=== PATIENT | female | born 1950 | race Caucasian/White ===

== ENCOUNTER 2016-03-28 15:13 | Emergency (ER) | payer OTHER ==
--- NOTE | 2016-03-28 17:42 | ED ORDER SUMMARY ---
..... Patient: VIRIDIANA BARCLAY OrderSheet [facility] VisitID: [id number] [address] [place] [address] 65y, F Registration Date/Time: 03/28/2016 ORDER SHEET Weight: 83.4 kg (stated) Allergies: No Known Drug Allergy GENERAL ORDERS: Hip 2V Left w AP Pelvis Urgent (16:54 03/28/2016 Hermelinda ALARCON) (Ack 16:54 LMuller) (17:06 LMuller) MEDICATION ORDERS: IV FLUIDS: ORDER SHEET NOTES: [Electronically signed by Betsy Timmons R.N. (17:39 03/28/2016)] [Electronically locked/signed by Betsy Timmons R.N. (17:39 03/28/2016)]
--- NOTE | 2016-03-28 17:42 | ED ORDER SUMMARY ---
..... Patient: VIRIDIANA BARCLAY OrderSheet [facility] VisitID: [id number] [address] [place] [address] 65y, F Registration Date/Time: 03/28/2016 ORDER SHEET Weight: 83.4 kg (stated) Allergies: No Known Drug Allergy GENERAL ORDERS: Hip 2V Left w AP Pelvis Urgent (16:54 03/28/2016 Hermelinda ALARCON) (Ack 16:54 LMuller) (17:06 LMuller) MEDICATION ORDERS: IV FLUIDS: ORDER SHEET NOTES: [Electronically signed by Betsy Timmons R.N. (17:39 03/28/2016)] [Electronically locked/signed by Betsy Timmons R.N. (17:39 03/28/2016)]
--- NOTE | 2016-03-28 17:42 | ED CLINICAL REPORT ---
Clinical Report - Physicians/Mid Levels [facility] [address] [place] [address] 03/28/2016 15:18 [id number] Time Seen: 15:58. Arrived- By private vehicle. Historian- patient. HISTORY OF PRESENT ILLNESS Chief Complaint: FALL. Location of injuries- left hip and left thigh. The injury occurred about 1 week ago. Occurred at work. Fell while walking and landed on the ground; tripped. The patient complains of severe pain. No blow to the head or loss of consciousness. (the patient fell after tripping over some boxes at work. She was seen at a clinic and had x-rays of the left hip done and she says that these were normal. She has had intermittent severe "spasms" of her left thigh that she saysare only mildly improved with the use of cyclobenzaprine). REVIEW OF SYSTEMS The patient complains of pain on weight bearing. No chills, fever, sweats, calf pain or chest pain. No cough, difficulty breathing, pedal edema, palpitations or abdominal pain. No constipation, diarrhea, nausea, vomiting or urinary problems. All systems otherwise negative, except as recorded above. SOCIAL HISTORY Never smoker. No alcohol use or drug use. FAMILY HISTORY No significant family medical history. ADDITIONAL NOTES The nursing notes have been reviewed. PHYSICAL EXAM Vital Signs: 03/28/2016 15:31 BP: 163/90. HR: 87. RR: 18. O2 saturation: 100%. Temp: 98.5 F. Have been reviewed. Appearance: Alert. Eyes: Pupils equal, round and reactive to light. EOM intact. ENT: No dental injury. Pharynx normal. Neck: Painless ROM. No vertebral tenderness. CVS: Heart sounds normal. Pulses normal. Respiratory: Breath sounds normal. Abdomen: No visible injury. Soft and nontender. Bowel sounds normal. No organomegaly. No mass. Back: No tenderness. ROM normal. No vertebral point tenderness. Skin: Skin intact. Skin warm and dry. Normal skin color. Normal skin turgor. Extremities: Pelvis stable. Left hip: moderate tenderness. Limited ROM secondary to pain (diminished external rotation). (muscle spasm noted in the anterior and posterior thigh). Neuro: No motor deficit. No sensory deficit. LABS, X-RAYS, AND EKG Lt Hip X-ray: No fracture. Degenerative joint disease. The X-rays were independently viewed by me. PROGRESS AND PROCEDURES Course of Care: Patient is stable. Patient/family counseled. Old medical records ordered. Old records unavailable. Disposition: Discharged. Condition: stable. CLINICAL IMPRESSION Muscle strain of the left hip and left quadriceps and left hamstrings. INSTRUCTIONS You may walk and bear weight as tolerated. (discontinue the use of cyclobenzaprine as discussed). Warnings: GENERAL WARNINGS: Return or contact your physician immediately if your condition worsens or changes unexpectedly, if not improving as expected, or if other problems arise. Your Current Medications: CONTINUE TAKING THE FOLLOWING MEDICATIONS: Levothyroxine Sodium Oral. Prescription Medications: Valium 5 mg: take 1 orally every 8 hours as needed for muscle spasm. Dispense fifteen (15). No refill. Substitution is permissible. OTC Medications: Motrin (available over the counter): take according to label instructions. Understanding of the discharge instructions verbalized by patient. Follow-up with: Sean Rider MD, [facility], , [facility], [address] [place] [address] Follow up in five days. Call for an appointment. (Electronically signed by Jonas Amezquita MD 03/28/2016 18:15)
--- NOTE | 2016-03-28 17:42 | ED CLINICAL REPORT ---
Clinical Report - Physicians/Mid Levels [facility] [address] [place] [address] 03/28/2016 15:18 [id number] Time Seen: 15:58. Arrived- By private vehicle. Historian- patient. HISTORY OF PRESENT ILLNESS Chief Complaint: FALL. Location of injuries- left hip and left thigh. The injury occurred about 1 week ago. Occurred at work. Fell while walking and landed on the ground; tripped. The patient complains of severe pain. No blow to the head or loss of consciousness. (the patient fell after tripping over some boxes at work. She was seen at a clinic and had x-rays of the left hip done and she says that these were normal. She has had intermittent severe "spasms" of her left thigh that she saysare only mildly improved with the use of cyclobenzaprine). REVIEW OF SYSTEMS The patient complains of pain on weight bearing. No chills, fever, sweats, calf pain or chest pain. No cough, difficulty breathing, pedal edema, palpitations or abdominal pain. No constipation, diarrhea, nausea, vomiting or urinary problems. All systems otherwise negative, except as recorded above. SOCIAL HISTORY Never smoker. No alcohol use or drug use. FAMILY HISTORY No significant family medical history. ADDITIONAL NOTES The nursing notes have been reviewed. PHYSICAL EXAM Vital Signs: 03/28/2016 15:31 BP: 163/90. HR: 87. RR: 18. O2 saturation: 100%. Temp: 98.5 F. Have been reviewed. Appearance: Alert. Eyes: Pupils equal, round and reactive to light. EOM intact. ENT: No dental injury. Pharynx normal. Neck: Painless ROM. No vertebral tenderness. CVS: Heart sounds normal. Pulses normal. Respiratory: Breath sounds normal. Abdomen: No visible injury. Soft and nontender. Bowel sounds normal. No organomegaly. No mass. Back: No tenderness. ROM normal. No vertebral point tenderness. Skin: Skin intact. Skin warm and dry. Normal skin color. Normal skin turgor. Extremities: Pelvis stable. Left hip: moderate tenderness. Limited ROM secondary to pain (diminished external rotation). (muscle spasm noted in the anterior and posterior thigh). Neuro: No motor deficit. No sensory deficit. LABS, X-RAYS, AND EKG Lt Hip X-ray: No fracture. Degenerative joint disease. The X-rays were independently viewed by me. PROGRESS AND PROCEDURES Course of Care: Patient is stable. Patient/family counseled. Old medical records ordered. Old records unavailable. Disposition: Discharged. Condition: stable. CLINICAL IMPRESSION Muscle strain of the left hip and left quadriceps and left hamstrings. INSTRUCTIONS You may walk and bear weight as tolerated. (discontinue the use of cyclobenzaprine as discussed). Warnings: GENERAL WARNINGS: Return or contact your physician immediately if your condition worsens or changes unexpectedly, if not improving as expected, or if other problems arise. Your Current Medications: CONTINUE TAKING THE FOLLOWING MEDICATIONS: Levothyroxine Sodium Oral. Prescription Medications: Valium 5 mg: take 1 orally every 8 hours as needed for muscle spasm. Dispense fifteen (15). No refill. Substitution is permissible. OTC Medications: Motrin (available over the counter): take according to label instructions. Understanding of the discharge instructions verbalized by patient. Follow-up with: Sean Rider MD, [facility], , [facility], [address] [place] [address] Follow up in five days. Call for an appointment. (Electronically signed by Jonas Amezquita MD 03/28/2016 18:15)
--- NOTE | 2016-03-28 17:42 | ED NURSING NOTES ---
Clinical Report - Nurses [facility] [address] [place] [address] 03/28/2016 15:18 [id number] Triage time 15:Mar 28 2016. Acuity: LEVEL 4. Chief Complaint: FALL. 15:31 03/28/16. SEPSIS SCREEN: Sepsis Screen: negative. Negative (no infection suspected/documented). JULEE COMA SCORE: Julee Coma Scale: 15- eyes open spontaneously (4); best verbal response- oriented x 4 (5); best motor response- obeys commands (6). --15:35 Betsy Timmons R.N. 15:31 03/28/16. BP: 163/90. HR: 87. RR: 18. O2 saturation: 100%. Temp: 98.5 F. Pain level now 8/10. --15:35 Betsy Timmons R.N. 15:35 03/28/16. --15:35 Betsy Timmons R.N. Weight: 83.4 kg stated. Height/Length: 67 inches Per Patient. BMI: 28.8. --15:31 Betsy Timmons R.N. Medications Levothyroxine Sodium Oral. --15:33 Betsy Timmons R.N. Allergies No Known Drug Allergy. --15:33 Betsy Timmons R.N. Medication/allergy information source: the patient. --15:35 Betsy Timmons R.N. History Arrived by private vehicle. Historian: patient. Accompanied by family. Location of injuries: left hip and left thigh. This occurred (7 days ago). No loss of consciousness. No headache, neck pain, back pain, numbness or weakness. 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 Trauma activation: Pre-hospital notification of patient arrival was not received. PAST MEDICAL HX: Immunizations: seasonal influenza. SOCIAL HX: Never smoker. No alcohol use or drug use. No infectious disease exposure. ABUSE ASSESSMENT: No report of abuse. SELF HARM ASSESSMENT: A self harm assessment was performed. The patient answered "no" to the question "Have you recently felt down, depressed, or hopeless?", "Have you noticed less interest or pleasure in doing things?", "Do you have thoughts of harming or killing yourself?", "Are you here because you tried to hurt yourself?", "Have you ever tried to hurt yourself before today?", "Have you recently had thoughts about harming or killing others?" and "Do you have any dangerous items in your possession?". NUTRITIONAL RISK ASSESSMENT: The nutritional risk assessment revealed no deficiencies. FUNCTIONAL ASSESSMENT: Functional assessment: no impairments noted. LEARNING NEEDS ASSESSMENT: The learning needs assessment revealed no barriers. SKIN INTEGRITY ASSESSMENT: Skin integrity risk assessment completed. No skin integrity risk identified. --15:35 Betsy Timmons R.N. ( PATIENT STATES FELL LAST WEEK AT WORK, INITIALLY EVALUATED AT [place], [place] WITH FLEXERIL. PAIN HAS BEEN GETTING WORSE SINCE THEN.). --15:35 Betsy Timmons R.N. PROBLEMS: Hypothyroidism. --15:33 Betsy Timmons R.N. ADDITIONAL SURGERIES: Hysterectomy. --15:33 Betsy Timmons R.N. Interventions ID band on patient. --15:35 Betsy Timmons R.N. PHYSICAL ASSESSMENT 15:38 03/28/16. Ambulatory to room. GENERAL / NEURO / PSYCH: Alert. Oriented X 4. Appears in no acute distress. Appears in pain. HEENT: Pupils equal, round and reactive to light. Head non-tender. RESPIRATORY: Breath sounds within normal limits. CVS: Pulses within normal limits. GI / : Abdomen soft and nontender. No pelvis related complaint. EXTREMITIES: Extremities exhibit normal ROM. Limping gait. Neuro-vascular status intact to the extremity. Left thigh: tenderness. No injury to the right hip or left hip. SKIN: Skin intact. Skin is warm and dry. --15:38 Betsy Timmons R.N. NURSING PROGRESS NOTES 15:39 03/28/16. The initial plan of care for this patient includes an assessment with efforts to address the presence of pain; impairment of the musculoskeletal system. This plan of care was discussed with the patient. Patient gowned. Reassurance given. Two patient identifiers checked. Call light placed in reach. Side rails up. Bed placed in lowest position. Brakes of bed on. Patient ready for evaluation. --15:39 Betsy Timmons R.N. 16:59 03/28/16. Patient transported to radiology by stretcher. --16:59 Betsy Timmons R.N. 17:06 03/28/16. Patient returned from radiology by stretcher. --17:06 Betsy Timmons R.N. DISPOSITION / DISCHARGE 17:39 03/28/16. Condition at departure: improved. The goals identified in the patient's plan of care were met. No learning barriers present. Reviewed medication(s) side effects, precautions, dosing and course information. Prescription(s) given to the patient. Reviewed referral to a primary care physician for followup. Summary of care provided to patient. Patient verbalized understanding. Written instructions provided in [place]er. The patient was discharged home and accompanied by family. She left the Emergency Department ambulatory and via private vehicle. Family member driving. --17:39 Betsy Timmons R.N. 17:39 03/28/16. BP: 163/94. HR: 73. RR: 18. O2 saturation: 95%. Temp: 98.1 F. Pain level now 4/10. --17:39 Betsy Timmons R.N. Departure time: 17:39 Mar 28 2016. --17:39 Betsy Timmons R.N. Locked/Released at 03/28/2016 17:39 by Betsy Timmons R.N.
--- NOTE | 2016-03-28 17:42 | ED NURSING NOTES ---
Clinical Report - Nurses [facility] [address] [place] [address] 03/28/2016 15:18 [id number] Triage time 15:Mar 28 2016. Acuity: LEVEL 4. Chief Complaint: FALL. 15:31 03/28/16. SEPSIS SCREEN: Sepsis Screen: negative. Negative (no infection suspected/documented). JULEE COMA SCORE: Julee Coma Scale: 15- eyes open spontaneously (4); best verbal response- oriented x 4 (5); best motor response- obeys commands (6). --15:35 Betsy Timmons R.N. 15:31 03/28/16. BP: 163/90. HR: 87. RR: 18. O2 saturation: 100%. Temp: 98.5 F. Pain level now 8/10. --15:35 Betsy Timmons R.N. 15:35 03/28/16. --15:35 Betsy Timmons R.N. Weight: 83.4 kg stated. Height/Length: 67 inches Per Patient. BMI: 28.8. --15:31 Betsy Timmons R.N. Medications Levothyroxine Sodium Oral. --15:33 Betsy Timmons R.N. Allergies No Known Drug Allergy. --15:33 Betsy Timmons R.N. Medication/allergy information source: the patient. --15:35 Betsy Timmons R.N. History Arrived by private vehicle. Historian: patient. Accompanied by family. Location of injuries: left hip and left thigh. This occurred (7 days ago). No loss of consciousness. No headache, neck pain, back pain, numbness or weakness. 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 Trauma activation: Pre-hospital notification of patient arrival was not received. PAST MEDICAL HX: Immunizations: seasonal influenza. SOCIAL HX: Never smoker. No alcohol use or drug use. No infectious disease exposure. ABUSE ASSESSMENT: No report of abuse. SELF HARM ASSESSMENT: A self harm assessment was performed. The patient answered "no" to the question "Have you recently felt down, depressed, or hopeless?", "Have you noticed less interest or pleasure in doing things?", "Do you have thoughts of harming or killing yourself?", "Are you here because you tried to hurt yourself?", "Have you ever tried to hurt yourself before today?", "Have you recently had thoughts about harming or killing others?" and "Do you have any dangerous items in your possession?". NUTRITIONAL RISK ASSESSMENT: The nutritional risk assessment revealed no deficiencies. FUNCTIONAL ASSESSMENT: Functional assessment: no impairments noted. LEARNING NEEDS ASSESSMENT: The learning needs assessment revealed no barriers. SKIN INTEGRITY ASSESSMENT: Skin integrity risk assessment completed. No skin integrity risk identified. --15:35 Betsy Timmons R.N. ( PATIENT STATES FELL LAST WEEK AT WORK, INITIALLY EVALUATED AT [place], [place] WITH FLEXERIL. PAIN HAS BEEN GETTING WORSE SINCE THEN.). --15:35 Betsy Timmons R.N. PROBLEMS: Hypothyroidism. --15:33 Betsy Timmons R.N. ADDITIONAL SURGERIES: Hysterectomy. --15:33 Betsy Timmons R.N. Interventions ID band on patient. --15:35 Betsy Timmons R.N. PHYSICAL ASSESSMENT 15:38 03/28/16. Ambulatory to room. GENERAL / NEURO / PSYCH: Alert. Oriented X 4. Appears in no acute distress. Appears in pain. HEENT: Pupils equal, round and reactive to light. Head non-tender. RESPIRATORY: Breath sounds within normal limits. CVS: Pulses within normal limits. GI / : Abdomen soft and nontender. No pelvis related complaint. EXTREMITIES: Extremities exhibit normal ROM. Limping gait. Neuro-vascular status intact to the extremity. Left thigh: tenderness. No injury to the right hip or left hip. SKIN: Skin intact. Skin is warm and dry. --15:38 Betsy Timmons R.N. NURSING PROGRESS NOTES 15:39 03/28/16. The initial plan of care for this patient includes an assessment with efforts to address the presence of pain; impairment of the musculoskeletal system. This plan of care was discussed with the patient. Patient gowned. Reassurance given. Two patient identifiers checked. Call light placed in reach. Side rails up. Bed placed in lowest position. Brakes of bed on. Patient ready for evaluation. --15:39 Betsy Timmons R.N. 16:59 03/28/16. Patient transported to radiology by stretcher. --16:59 Betsy Timmons R.N. 17:06 03/28/16. Patient returned from radiology by stretcher. --17:06 Betsy Timmons R.N. DISPOSITION / DISCHARGE 17:39 03/28/16. Condition at departure: improved. The goals identified in the patient's plan of care were met. No learning barriers present. Reviewed medication(s) side effects, precautions, dosing and course information. Prescription(s) given to the patient. Reviewed referral to a primary care physician for followup. Summary of care provided to patient. Patient verbalized understanding. Written instructions provided in [place]an. The patient was discharged home and accompanied by family. She left the Emergency Department ambulatory and via private vehicle. Family member driving. --17:39 Betsy Timmons R.N. 17:39 03/28/16. BP: 163/94. HR: 73. RR: 18. O2 saturation: 95%. Temp: 98.1 F. Pain level now 4/10. --17:39 Betsy Timmons R.N. Departure time: 17:39 Mar 28 2016. --17:39 Betsy Timmons R.N. Locked/Released at 03/28/2016 17:39 by Betsy Timmons R.N.
--- NOTE | 2016-03-28 18:16 | ED DISCHARGE INSTRUCTIONS ---
Patient: VIRIDIANA BARCLAY General Instructions [facility] VisitID: [id number] [address] [place], [place] [id number] 65y, F Registration Date/Time: 03/28/2016 Muscle strain of the left hip and left quadriceps and left hamstrings. INSTRUCTIONS You may walk and bear weight as tolerated. (discontinue the use of cyclobenzaprine as discussed). Warnings: GENERAL WARNINGS: Return or contact your physician immediately if your condition worsens or changes unexpectedly, if not improving as expected, or if other problems arise. Your Current Medications: CONTINUE TAKING THE FOLLOWING MEDICATIONS: Levothyroxine Sodium Oral. Prescription Medications: Valium 5 mg: take 1 orally every 8 hours as needed for muscle spasm. Dispense fifteen (15). No refill. Substitution is permissible. OTC Medications: Motrin (available over the counter): take according to label instructions. Understanding of the discharge instructions verbalized by patient. Follow-up with: Sean Rider MD, [facility], , [facility], [address] [place] [address] Follow up in five days. Call for an appointment. ADDITIONAL INFORMATION Hip Strain You have a strain of the muscles around the hip joint. A muscle strain is a stretching or tearing of muscle fibers. This causes pain, especially with motion of that muscle. There may also be some swelling and bruising. Home Care: Stay off the injured leg as much as possible until you can walk on it without pain. If you have a lot of pain with walking, crutches or a walker may be prescribed. (These can be rented or purchased at many pharmacies and surgical or orthopedic supply stores). Follow your doctor's advice regarding when to begin bearing weight on that leg. Apply an ice pack (ice cubes in a plastic bag, wrapped in a towel) over the injured area for 20 minutes every 1-2 hours the first day. Continue with ice packs 3-4 times a day for the next two days, then as needed for the relief of pain and swelling. Unless otherwise instructed, on the fourth day you may begin hot soaks or hot packs (small towel soaked in hot water) 3-4 times a day while you gently exercise the involved area. You may use acetaminophen (Tylenol) or ibuprofen (Motrin, Advil) to control pain, unless another pain medicine was prescribed. [NOTE: If you have chronic liver or kidney disease or ever had a stomach ulcer or GI bleeding, talk with your doctor before using these medicines.] If you play sports, you may resume these activities when you are able to hop and run on the injured leg without pain. Follow Up with your doctor, or as advised by our staff, if your symptoms do not begin to improve after one week. Further tests may be needed. [NOTE: If X-rays were taken, they will be reviewed by a radiologist. You will be notified of any new findings that may affect your care.] Get Prompt Medical Attention if any of the following occur: Increased swelling or increased bruising Pain becomes worse Decreased ability to bear weight on the injured side Diazepam Oral tablet What is this medicine? DIAZEPAM (dye AZ e andre) is a benzodiazepine. It is used to treat anxiety and nervousness. It also can help treat alcohol withdrawal, relax muscles, and treat certain types of seizures. How should I use this medicine? Take this medicine by mouth with a glass of water. Follow the directions on the prescription label. If this medicine upsets your stomach, take it with food or milk. Take your doses at regular intervals. Do not take your medicine more often than directed. If you have been taking this medicine regularly for some time, do not suddenly stop taking it. You must gradually reduce the dose or you may get severe side effects. Ask your doctor or health childcare worker for advice. Even after you stop taking this medicine it can still affect your body for several days. Talk to your ict help desk technician regarding the use of this medicine in children. Special care may be needed. What side effects may I notice from receiving this medicine? Side effects that you should report to your doctor or health childcare worker as soon as possible: allergic reactions like skin rash, itching or hives, swelling of the face, lips, or tongue angry, confused, depressed, other mood changes breathing problems feeling faint or lightheaded, falls muscle cramps problems with balance, talking, walking restlessness tremors trouble passing urine or change in the amount of urine unusually weak or tired Side effects that usually do not require medical attention (report to your doctor or health childcare worker if they continue or are bothersome): difficulty sleeping, nightmares dizziness, drowsiness, clumsiness, or unsteadiness, a hangover effect headache nausea, vomiting What may interact with this medicine? cimetidine grapefruit juice herbal or dietary supplements like kava kava, melatonin, Ksenia's Wort, or valerian medicines for anxiety or sleeping problems, like alprazolam, lorazepam, or triazolam medicines for depression, mental problems or psychiatric disturbances medicines for HIV infection or AIDS prescription pain medicines rifampin, rifapentine, or rifabutin some medicines for seizures like carbamazepine, phenobarbital, phenytoin, or primidone What if I miss a dose? If you miss a dose, take it as soon as you can. If it is almost time for your next dose, take only that dose. Do not take double or extra doses. Where should I keep my medicine? Keep out of the reach of children. This medicine can be abused. Keep your medicine in a safe place to protect it from theft. Do not share this medicine with anyone. Selling or giving away this medicine is dangerous and against the law. Store at room temperature between 15 and 30 degrees C (59 and 86 degrees F). Protect from light. Keep container tightly closed. Throw away any unused medicine after the expiration date. What should I tell my health care provider before I take this medicine? They need to know if you have any of these conditions an alcohol or drug abuse problem bipolar disorder, depression, psychosis or other mental health condition glaucoma kidney or liver disease lung or breathing disease myasthenia gravis Parkinson's disease seizures or a history of seizures suicidal thoughts an unusual or allergic reaction to diazepam, other benzodiazepines, foods, dyes, or preservatives or trying to get breast-feeding What should I watch for while using this medicine? Visit your doctor or health childcare worker for regular checks on your progress. Your body can become dependent on this medicine. Ask your doctor or health childcare worker if you still need to take it. You may get drowsy or dizzy. Do not drive, use machinery, or do anything that needs mental alertness until you know how this medicine affects you. To reduce the risk of dizzy and fainting spells, do not stand or sit up quickly, especially if you are an older patient. Alcohol may increase dizziness and drowsiness. Avoid alcoholic drinks. Do not treat yourself for coughs, colds or allergies without asking your doctor or health childcare worker for advice. Some ingredients can increase possible side effects. Ibuprofen Oral tablet What is this medicine? IBUPROFEN (eye BYOO proe fen) is a non-steroidal anti-inflammatory drug (NSAID). It is used for dental pain, fever, headaches or migraines, osteoarthritis, rheumatoid arthritis, or painful monthly periods. It can also relieve minor aches and pains caused by a cold, flu, or sore throat. How should I use this medicine? Take this medicine by mouth with a glass of water. Follow the directions on the prescription label. Take this medicine with food if your stomach gets upset. Try to not lie down for at least 10 minutes after you take the medicine. Take your medicine at regular intervals. Do not take your medicine more often than directed. A special MedGuide will be given to you by the pharmacist with each prescription and refill. Be sure to read this information carefully each time. Talk to your ict help desk technician regarding the use of this medicine in children. Special care may be needed. What side effects may I notice from receiving this medicine? Side effects that you should report to your doctor or health childcare worker as soon as possible: allergic reactions like skin rash, itching or hives, swelling of the face, lips, or tongue black or bloody stools, blood in the urine or in vomit breathing problems changes in vision chest pain general ill feeling or flu-like symptoms nausea or vomiting redness, blistering, peeling or loosening of the skin, including inside the mouth slurred speech or weakness on one side of the body stomach pain unexplained weight gain or swelling unusually weak or tired yellowing of eyes or skin Side effects that usually do not require medical attention (report to your doctor or health childcare worker if they continue or are bothersome): constipation or diarrhea dizziness gas or heartburn stomach upset What may interact with this medicine? Do not take this medicine with any of the following medications: cidofovir ketorolac methotrexate pemetrexed This medicine may also interact with the following medications: alcohol aspirin diuretics lithium other drugs for inflammation like prednisone warfarin What if I miss a dose? If you miss a dose, take it as soon as you can. If it is almost time for your next dose, take only that dose. Do not take double or extra doses. Where should I keep my medicine? Keep out of the reach of children. Store at room temperature between 15 and 30 degrees C (59 and 86 degrees F). Keep container tightly closed. Throw away any unused medicine after the expiration date. What should I tell my health care provider before I take this medicine? They need to know if you have any of these conditions: asthma cigarette smoker drink more than 3 alcohol containing drinks a day heart disease or circulation problems such as heart failure or leg edema (fluid retention) high blood pressure kidney disease liver disease stomach bleeding or ulcers an unusual or allergic reaction to ibuprofen, aspirin, other NSAIDS, other medicines, foods, dyes, or preservatives or trying to get breast-feeding What should I watch for while using this medicine? Tell your doctor or healthcare professional if your symptoms do not start to get better or if they get worse. This medicine does not prevent heart attack or stroke. In fact, this medicine may increase the chance of a heart attack or stroke. The chance may increase with longer use of this medicine and in people who have heart disease. If you take aspirin to prevent heart attack or stroke, talk with your doctor or health childcare worker. Do not take other medicines that contain aspirin, ibuprofen, or naproxen with this medicine. Side effects such as stomach upset, nausea, or ulcers may be more likely to occur. Many medicines available without a prescription should not be taken with this medicine. This medicine can cause ulcers and bleeding in the stomach and intestines at any time during treatment. Ulcers and bleeding can happen without warning symptoms and can cause . To reduce your risk, do not smoke cigarettes or drink alcohol while you are taking this medicine. You may get drowsy or dizzy. Do not drive, use machinery, or do anything that needs mental alertness until you know how this medicine affects you. Do not stand or sit up quickly, especially if you are an older patient. This reduces the risk of dizzy or fainting spells. This medicine can cause you to bleed more easily. Try to avoid damage to your teeth and gums when you brush or floss your teeth. You have been given the following additional information: Hip Strain Diazepam Oral tablet Ibuprofen Oral tablet You may walk and bear weight as tolerated. (Electronically signed by Jonas Amezquita MD 03/28/2016 18:15)
--- NOTE | 2016-03-28 18:16 | ED DISCHARGE INSTRUCTIONS ---
Patient: VIRIDIANA BARCLAY General Instructions [facility] VisitID: [id number] [address] [place], [place] [id number] 65y, F Registration Date/Time: 03/28/2016 Muscle strain of the left hip and left quadriceps and left hamstrings. INSTRUCTIONS You may walk and bear weight as tolerated. (discontinue the use of cyclobenzaprine as discussed). Warnings: GENERAL WARNINGS: Return or contact your physician immediately if your condition worsens or changes unexpectedly, if not improving as expected, or if other problems arise. Your Current Medications: CONTINUE TAKING THE FOLLOWING MEDICATIONS: Levothyroxine Sodium Oral. Prescription Medications: Valium 5 mg: take 1 orally every 8 hours as needed for muscle spasm. Dispense fifteen (15). No refill. Substitution is permissible. OTC Medications: Motrin (available over the counter): take according to label instructions. Understanding of the discharge instructions verbalized by patient. Follow-up with: Sean Rider MD, [facility], , [facility], [address] [place] [address] Follow up in five days. Call for an appointment. ADDITIONAL INFORMATION Hip Strain You have a strain of the muscles around the hip joint. A muscle strain is a stretching or tearing of muscle fibers. This causes pain, especially with motion of that muscle. There may also be some swelling and bruising. Home Care: Stay off the injured leg as much as possible until you can walk on it without pain. If you have a lot of pain with walking, crutches or a walker may be prescribed. (These can be rented or purchased at many pharmacies and surgical or orthopedic supply stores). Follow your doctor's advice regarding when to begin bearing weight on that leg. Apply an ice pack (ice cubes in a plastic bag, wrapped in a towel) over the injured area for 20 minutes every 1-2 hours the first day. Continue with ice packs 3-4 times a day for the next two days, then as needed for the relief of pain and swelling. Unless otherwise instructed, on the fourth day you may begin hot soaks or hot packs (small towel soaked in hot water) 3-4 times a day while you gently exercise the involved area. You may use acetaminophen (Tylenol) or ibuprofen (Motrin, Advil) to control pain, unless another pain medicine was prescribed. [NOTE: If you have chronic liver or kidney disease or ever had a stomach ulcer or GI bleeding, talk with your doctor before using these medicines.] If you play sports, you may resume these activities when you are able to hop and run on the injured leg without pain. Follow Up with your doctor, or as advised by our staff, if your symptoms do not begin to improve after one week. Further tests may be needed. [NOTE: If X-rays were taken, they will be reviewed by a radiologist. You will be notified of any new findings that may affect your care.] Get Prompt Medical Attention if any of the following occur: Increased swelling or increased bruising Pain becomes worse Decreased ability to bear weight on the injured side Diazepam Oral tablet What is this medicine? DIAZEPAM (dye AZ e andre) is a benzodiazepine. It is used to treat anxiety and nervousness. It also can help treat alcohol withdrawal, relax muscles, and treat certain types of seizures. How should I use this medicine? Take this medicine by mouth with a glass of water. Follow the directions on the prescription label. If this medicine upsets your stomach, take it with food or milk. Take your doses at regular intervals. Do not take your medicine more often than directed. If you have been taking this medicine regularly for some time, do not suddenly stop taking it. You must gradually reduce the dose or you may get severe side effects. Ask your doctor or health rn care manager for advice. Even after you stop taking this medicine it can still affect your body for several days. Talk to your reporter regarding the use of this medicine in children. Special care may be needed. What side effects may I notice from receiving this medicine? Side effects that you should report to your doctor or health rn care manager as soon as possible: allergic reactions like skin rash, itching or hives, swelling of the face, lips, or tongue angry, confused, depressed, other mood changes breathing problems feeling faint or lightheaded, falls muscle cramps problems with balance, talking, walking restlessness tremors trouble passing urine or change in the amount of urine unusually weak or tired Side effects that usually do not require medical attention (report to your doctor or health rn care manager if they continue or are bothersome): difficulty sleeping, nightmares dizziness, drowsiness, clumsiness, or unsteadiness, a hangover effect headache nausea, vomiting What may interact with this medicine? cimetidine grapefruit juice herbal or dietary supplements like kava kava, melatonin, Ksenia's Wort, or valerian medicines for anxiety or sleeping problems, like alprazolam, lorazepam, or triazolam medicines for depression, mental problems or psychiatric disturbances medicines for HIV infection or AIDS prescription pain medicines rifampin, rifapentine, or rifabutin some medicines for seizures like carbamazepine, phenobarbital, phenytoin, or primidone What if I miss a dose? If you miss a dose, take it as soon as you can. If it is almost time for your next dose, take only that dose. Do not take double or extra doses. Where should I keep my medicine? Keep out of the reach of children. This medicine can be abused. Keep your medicine in a safe place to protect it from theft. Do not share this medicine with anyone. Selling or giving away this medicine is dangerous and against the law. Store at room temperature between 15 and 30 degrees C (59 and 86 degrees F). Protect from light. Keep container tightly closed. Throw away any unused medicine after the expiration date. What should I tell my health care provider before I take this medicine? They need to know if you have any of these conditions an alcohol or drug abuse problem bipolar disorder, depression, psychosis or other mental health condition glaucoma kidney or liver disease lung or breathing disease myasthenia gravis Parkinson's disease seizures or a history of seizures suicidal thoughts an unusual or allergic reaction to diazepam, other benzodiazepines, foods, dyes, or preservatives or trying to get breast-feeding What should I watch for while using this medicine? Visit your doctor or health rn care manager for regular checks on your progress. Your body can become dependent on this medicine. Ask your doctor or health rn care manager if you still need to take it. You may get drowsy or dizzy. Do not drive, use machinery, or do anything that needs mental alertness until you know how this medicine affects you. To reduce the risk of dizzy and fainting spells, do not stand or sit up quickly, especially if you are an older patient. Alcohol may increase dizziness and drowsiness. Avoid alcoholic drinks. Do not treat yourself for coughs, colds or allergies without asking your doctor or health rn care manager for advice. Some ingredients can increase possible side effects. Ibuprofen Oral tablet What is this medicine? IBUPROFEN (eye BYOO proe fen) is a non-steroidal anti-inflammatory drug (NSAID). It is used for dental pain, fever, headaches or migraines, osteoarthritis, rheumatoid arthritis, or painful monthly periods. It can also relieve minor aches and pains caused by a cold, flu, or sore throat. How should I use this medicine? Take this medicine by mouth with a glass of water. Follow the directions on the prescription label. Take this medicine with food if your stomach gets upset. Try to not lie down for at least 10 minutes after you take the medicine. Take your medicine at regular intervals. Do not take your medicine more often than directed. A special MedGuide will be given to you by the pharmacist with each prescription and refill. Be sure to read this information carefully each time. Talk to your reporter regarding the use of this medicine in children. Special care may be needed. What side effects may I notice from receiving this medicine? Side effects that you should report to your doctor or health rn care manager as soon as possible: allergic reactions like skin rash, itching or hives, swelling of the face, lips, or tongue black or bloody stools, blood in the urine or in vomit breathing problems changes in vision chest pain general ill feeling or flu-like symptoms nausea or vomiting redness, blistering, peeling or loosening of the skin, including inside the mouth slurred speech or weakness on one side of the body stomach pain unexplained weight gain or swelling unusually weak or tired yellowing of eyes or skin Side effects that usually do not require medical attention (report to your doctor or health rn care manager if they continue or are bothersome): constipation or diarrhea dizziness gas or heartburn stomach upset What may interact with this medicine? Do not take this medicine with any of the following medications: cidofovir ketorolac methotrexate pemetrexed This medicine may also interact with the following medications: alcohol aspirin diuretics lithium other drugs for inflammation like prednisone warfarin What if I miss a dose? If you miss a dose, take it as soon as you can. If it is almost time for your next dose, take only that dose. Do not take double or extra doses. Where should I keep my medicine? Keep out of the reach of children. Store at room temperature between 15 and 30 degrees C (59 and 86 degrees F). Keep container tightly closed. Throw away any unused medicine after the expiration date. What should I tell my health care provider before I take this medicine? They need to know if you have any of these conditions: asthma cigarette smoker drink more than 3 alcohol containing drinks a day heart disease or circulation problems such as heart failure or leg edema (fluid retention) high blood pressure kidney disease liver disease stomach bleeding or ulcers an unusual or allergic reaction to ibuprofen, aspirin, other NSAIDS, other medicines, foods, dyes, or preservatives or trying to get breast-feeding What should I watch for while using this medicine? Tell your doctor or healthcare professional if your symptoms do not start to get better or if they get worse. This medicine does not prevent heart attack or stroke. In fact, this medicine may increase the chance of a heart attack or stroke. The chance may increase with longer use of this medicine and in people who have heart disease. If you take aspirin to prevent heart attack or stroke, talk with your doctor or health rn care manager. Do not take other medicines that contain aspirin, ibuprofen, or naproxen with this medicine. Side effects such as stomach upset, nausea, or ulcers may be more likely to occur. Many medicines available without a prescription should not be taken with this medicine. This medicine can cause ulcers and bleeding in the stomach and intestines at any time during treatment. Ulcers and bleeding can happen without warning symptoms and can cause . To reduce your risk, do not smoke cigarettes or drink alcohol while you are taking this medicine. You may get drowsy or dizzy. Do not drive, use machinery, or do anything that needs mental alertness until you know how this medicine affects you. Do not stand or sit up quickly, especially if you are an older patient. This reduces the risk of dizzy or fainting spells. This medicine can cause you to bleed more easily. Try to avoid damage to your teeth and gums when you brush or floss your teeth. You have been given the following additional information: Hip Strain Diazepam Oral tablet Ibuprofen Oral tablet You may walk and bear weight as tolerated. (Electronically signed by Jonas Amezquita MD 03/28/2016 18:15)
--- NOTE | 2016-03-28 18:16 | ED MED RECONCILIATION SUMMARY ---
Patient: VIRIDIANA BARCLAY Medication Reconciliation Report [facility] VisitID: [id number] [address] [place] [address] 65y, F Registration Date/Time: 03/28/2016 Weight: 83.4 kg Height/Length: 67 in. BMI: 28.8 ALLERGIES: No Known Drug Allergy The patient's Home Medications are listed below: CONTINUE TAKING THE FOLLOWING MEDICATIONS: Levothyroxine Sodium Oral The source(s) of the original Home Medication information: patient The following Medications were given to the patient in the Emergency Department: None. The following Medications were prescribed to the patient: Motrin (available over the counter): take according to label instructions. -- Jonas Amezquita MD Valium 5 mg: take 1 orally every 8 hours as needed for muscle spasm. Dispense fifteen (15). No refill. Substitution is permissible. -- Jonas Amezquita MD
--- NOTE | 2016-03-28 18:16 | ED MAR SUMMARY ---
..... Medication Administration Record [facility] [address] [place], [place] [id number] Patient: VIRIDIANA BARCLAY Visit ID: [id number] 65y, F Weight: 83.4 kg Height/Length: 67 in BMI: 28.8 ALLERGIES: No Known Drug Allergy
--- NOTE | 2016-03-28 18:16 | ED MED RECONCILIATION SUMMARY ---
Patient: VIRIDIANA BARCLAY Medication Reconciliation Report [facility] VisitID: [id number] [address] [place] [address] 65y, F Registration Date/Time: 03/28/2016 Weight: 83.4 kg Height/Length: 67 in. BMI: 28.8 ALLERGIES: No Known Drug Allergy The patient's Home Medications are listed below: CONTINUE TAKING THE FOLLOWING MEDICATIONS: Levothyroxine Sodium Oral The source(s) of the original Home Medication information: patient The following Medications were given to the patient in the Emergency Department: None. The following Medications were prescribed to the patient: Motrin (available over the counter): take according to label instructions. -- Jonas Amezquita MD Valium 5 mg: take 1 orally every 8 hours as needed for muscle spasm. Dispense fifteen (15). No refill. Substitution is permissible. -- Jonas Amezquita MD
--- NOTE | 2016-03-28 18:16 | ED MAR SUMMARY ---
..... Medication Administration Record [facility] [address] [place], [place] [id number] Patient: VIRIDIANA BARCLAY Visit ID: [id number] 65y, F Weight: 83.4 kg Height/Length: 67 in BMI: 28.8 ALLERGIES: No Known Drug Allergy
--- NOTE | 2016-03-28 20:06 | DIAGNOSTIC IMAGING REPORT ---
PROCEDURE: XR HIP 2VW W W/O AP PELVIS-LT INDICATION: TRAUMA/INJURY TECHNIQUE: AP view of the pelvis and hips with lateral view of the left hip. COMPARISON: Comparison made radiographs from [facility] on 03/25/2016. FINDINGS: LEFT HIP: There are severe arthritic changes of the left hip joint. There is no evidence of acute process or fracture. PELVIS: There are moderate arthritic change of the right hip joint. Osseous pelvis is normal. Metal surgical anchors overlying symphysis pubis. There are marked degenerative changes of the lower lumbar spine IMPRESSION: 1. Severe arthritic changes of the left hip joint (most likely representing osteoarthritis). 2. Moderate arthritic change of the right hip joint. 3. Marked arthritic changes of the lower lumbar spine. 4. Negative pelvis.
== END 2016-03-28 17:39 | disposition home or self-care (01) ==
LOC: ED SRH 15:13
DX: S76.012D Strain of muscle, fascia and tendon of left hip, subsequent encounter (principal); W01.0XXD Fall on same level from slipping, tripping and stumbling without subsequent striking against object, subsequent encounter; Y93.89 Activity, other specified; Y99.0 Civilian activity done for income or pay; Y92.9 Unspecified place or not applicable